=== PATIENT | female | born 1985 | race Caucasian/White ===

== ENCOUNTER 2016-07-04 15:00 | Inpatient (IN) | payer SELFPAY ==
[2016-07-04] MEDS ORDERED: Ertapenem Inj 1 GM in Sodium Chloride 0.9% 100 ML IV ONE (15:17)
[2016-07-04] MEDS ORDERED: NORMAL SALINE 10 ML SYRINGE FLUSH IVP PRN ×2 (15:17→18:17)
[2016-07-04] MEDS ORDERED: Sodium Chloride 0.9% 1,000 ML PRIMARY IV ONE (15:17)
--- NOTE | 2016-07-04 17:20 | DI ---
CT CTA CHEST NONCORONARY W/WO,07/04/2016 3:17 PM: Clinical History: Elevated d-dimer Previous Exam: None at this facility. Findings: Multiple helically acquired CT images are obtained through the chest following the intravenous demons tration of 75 cc of Isovue 300, and demonstrate normal pulmonary arteries without evidence of filling defect to suggest pulmonary embolism. There is no pleural effusion and no infiltrate. There are exte nsive inflammatory changes surrounding the gallbladder which are not well evaluated on this exam. The aorta and skeletal structures are unremarkable. Impression: 1. No evidence of pulmonary embolism. 2. Advanced inflammatory changes in the gallbladder fossa consistent with acute cholecystitis.
--- NOTE | 2016-07-04 18:05 | PDOC ---
History and Physical - History of Present Illness Date and Time of Service: 07/04/2016 6:31 PM Chief Complaint: Right upper quadrant abdominal pain of 5 days' duration History of Present Illness: This is a 30 years old female with no significant medical history except history of GERD for which she take Prilosec who came into the urgent care clinic because of right upper quadrant pain that started 5 days ago, pain is constant she said she did vomit once 5 days ago. The last 2 days her appetite is down and pain seemed to be increased with taking deep breath, there is no fever no shakes because of for continuous symptoms she came into the urgent care clinic. Evaluation there revealed elevated white count of 31,000, ultrasound showed acute cholecystitis was seen by Dr. Bond and she was referred to the ER because of an elevated d-dimer, in the ER she had CT of the chest which showed no evidence of PE and she was admitted. She did receive a dose of for ertapenem in the ER. Currently the patient rates her pain about 7 out of 10. The pain goes between the shoulders. She is not nauseated at this minute. Her bowels are normal. She is denying chest pain, she said she is taking shallow breaths because of her pain with increases with the taking deep breath. The pain she described as being throbbing pain. Past Medical History Medical History: GERD takes Prilosec Surgical History: No previous surgeries Family History: Reviewed an Not Pertinent Past Social History: Patient rarely drinks, she used to smoke quit 2 years ago, no drugs. Tobacco Use: Former Smoker Substance Use Type: None Alcohol Use: Rarely Medication / Allergies Home Medications: Home Medications Medication Instructions Recorded Confirmed Type Omeprazole Magnesium [Prilosec Otc] 1 tab PO DAILY tab 07/04/16 07/04/16 History Allergies/Adverse Reactions: Allergies Allergy/AdvReac Type Severity Reaction Status Date / Time No Known Allergies Allergy Verified 07/04/16 15:05 Review of Systems - Review of Systems All Systems: Reviewed & No Additional Complaints Except as Stated Exam - Vitals Vital Signs: Vital Signs Temperature 97.0 F Temperature Source Temporal Artery Scan Pulse Rate 87 Respiratory Rate 18 Blood Pressure 122/78 Pulse Ox 92 - General General Appearance: POSITIVE: No Acute Distress, Obese - Head Head Exam: POSITIVE: Normal Inspection, Atraumatic - Eye Eye Exam: POSITIVE: Normal Appearance - ENT ENT Exam: POSITIVE: Normal Exam Additonal ENT Exam Details: She has piercing in her nose and lips - Neck Neck Exam: POSITIVE: Normal Inspection - Respiratory Respiratory Exam: POSITIVE: Clear to Auscultation - Bilaterally - Cardiovascular Cardiovascular Exam: POSITIVE: RRR - GI/Abdominal Additional GI/Abdominal Exam Details: Difficult to assess for organomegaly because of obesity, the patient is tender in the right upper quadrant. Denny sign is positive. - Rectal Rectal Exam: POSITIVE: Deferred - External Exam: POSITIVE: Deferred Exam: POSITIVE: Deferred - Extremities Extremities Exam: POSITIVE: Normal Inspection - Back Back Exam: POSITIVE: Normal Inspection - Neurological Neurological Exam: POSITIVE: Alert, Oriented x 3, CN II-XII Intact, No Facial Droop, Speech Intact / Clear, Moves All Extremities Equally - Psychiatric Psychiatric Exam: POSITIVE: Normal Affect - Integumentary Integumentary Exam: POSITIVE: Normal Color Results - EKG Data -: EKG Interpreted by Me (EKG done in the clinic showed the sinus tachycardia at rate of 105) - Imaging Status: Report Reviewed by Me (CT of the chest showed no evidence of pulmonary embolism, advanced inflammatory changes in the gallbladder fossa consistent with acute cholecystitis Ultrasound of the abdomen showed stones, pericholecystic fluid and a positive sonographic Denny's sign consistent with acute cholecystitis) Assessment and Plan - Patient Problems (1) Acute cholecystitis Current Visit: Yes Status: Acute Comment: We'll continue with IV fluids and antibiotics she got a dosage of ertapenem already continue with ertapenem. Will write for pain medication and antiemetics. Will repeat her labs in the morning. I think she can proceed with surgery tomorrow. Will put her on nothing by mouth after midnight (2) Hypokalemia Current Visit: Yes Status: Acute Comment: Will replace her potassium repeat labs in the morning (3) Elevated d-dimer Current Visit: Yes Status: Acute Comment: CT of the chest was negative, I think is secondary to the inflammatory changes from acute cholecystitis. Photo / Body Diagrams - Uploaded Photos Uploaded Photos:
[2016-07-04] MEDS ORDERED: LIDOCAINE W/ SODIUM BICARB 0.5 ML SYR SUBD PRN (18:17)
[2016-07-04] MEDS ORDERED: ONDANSETRON 4 MG/2 ML VIAL IVP PRN (18:28)
[2016-07-04] MEDS: MORPHINE SULFATE 2 MG/1 ML IVP PRN (18:53)
--- NOTE | 2016-07-05 02:30 | PDOC ---
Abdomen/Flank HPI - General Chief Complaint: Abdomen Pain Stated Complaint: RUQ ABD PAIN X5 DAYS Date Seen by Provider: 07/04/16 Time Seen by Provider: 15:05 Source: POSITIVE: Patient, RN/MD Exam Limitations: POSITIVE: No limitations Nurse's Notes Reviewed & Considered: Yes - History of Present Illness Initial Comments: The patient is a 30-year-old female. She complains of a 5 day history of right upper abdominal pain. She was seen in the clinic by Dk Vidal, who evaluated her. Ultrasound of the abdomen showed gallbladder stones with para cholecystic fluid. Complete metabolic panel was normal with no elevation of liver enzymes. CRP was 36.6. White blood cell count was 31,700. D-dimer was obtained in the clinic which was elevated at 4.75. Electrocardiogram showed a sinus tachycardia. The patient's primary care physician discussed the disposition of the case with the surgeon legal secretary receptionist, Dr. Bond. Dr. Bond requested that we do a CTA of the chest to rule out pulmonary embolism, in view of the patient's elevated d-dimer. Patient is referred to the emergency room for this purpose and for further evaluation. Body Location Affected: REPORTS: Abdomen Timing: REPORTS: Constant Duration: >24 hours Severity: Moderate (5 days) Quality: REPORTS: "Pain" (Right upper quadrant of abdomen) Abdominal Pain Onset Location: REPORTS: RUQ Abdominal Pain Radiation: REPORTS: No radiation Context: REPORTS: None Modifying Factors: improves with: Other (Exacerbated by direct palpation) Associated Symptoms: REPORTS: Denies symptoms Similar Symptoms Previously: No Recent Care Received: REPORTS: Recently Seen, Treated by MD (As above) Any Prior Injuries Related to Current Complaint?: No - Patient Home Medications Home Medications: Home Medications Omeprazole Magnesium [Prilosec Otc] 1 tab PO DAILY tab 07/04/16 - Patient Allergies Allergies/Adverse Reactions: Allergies Allergy/AdvReac Type Severity Reaction Status Date / Time No Known Allergies Allergy Verified 07/04/16 15:05 Past Medical History - heen HEENT History: Denies History Cardiovascular History: Denies History Respiratory History: Asthma Additional Respiratory History: ASTHMA A CHILD, RESOLVED PER PT. Gastrointestinal History: Denies History Genitourinary History: Denies History Endocrine History: Denies History Musculoskeletal History: Denies History Prosthesis or Implant: No Neurological History: Denies History Blood Disorders: Denies History Psychiatric History: Denies History Female Reproductive History: Denies History LMP: CURRENTLY Obstetrical History: Denies History Cancer History: Denies History In Past Year Been Physically Harmed or Verbally Threatened: No History of MDRO: No Tobacco Use: Former Smoker Alcohol Use: Rarely Substance Use Type: None Previous Surgical History: Yes Type / Date of Surgery: DENTAL SURGERY ONLY Significant Family History: No pertinent family hx Past Medical History Reviewed: Reviewed - No Changes ROS - Limitations ROS Limitations: No Limitations Constitution: REPORTS: Denies Symptoms Cardiovascular: REPORTS: Denies Cardiac Symptoms Respiratory: REPORTS: Denies Resp Symptoms Neurological: REPORTS: Denies Neuro Symptoms Gastrointestinal: REPORTS: Abdominal Pain Endocrine: REPORTS: Denies Symptoms Musculoskeletal: REPORTS: Denies MS Symptoms Genitourinary: REPORTS: Denies Symptoms Eyes: REPORTS: Denies Symptoms ENT: REPORTS: Denies Symptoms Skin: REPORTS: Denies Skin Symptoms Lympathic: REPORTS: Denies Lympathic Symptoms Immunologic: POSITIVE: Denies Symptoms Psychiatric: POSITIVE: Denies Psych Symptoms Abdominal/Flank Pain PE - General Appearance General Appearance: POSITIVE: Alert, Cooperative, No Acute Distress, No Evidence of Trauma - HEENT HEENT: POSITIVE: Head Inspection Nml, Eyes Inspection Nml, Ears Inspection Nml, Nose Inspection Nml, Oral/Dental Inspect. Nml, Pharynx Inspect. Nml, PERRL, EOMI - Neck Neck: POSITIVE: Normal Inspection, No Apparent Injury - Respiratory Respiratory: POSITIVE: No Respiratory Distress, Breath Sounds Normal, Chest Non- Tender - Cardiovascular Cardiovascular: POSITIVE: Regular Rate and Rhythm, Heart Sounds Normal, Equal Pulses, Strong Pulses Peripheral Pulses: Radial (R): 2+, Radial (L): 2+ - Chest Chest: POSITIVE: Non Tender - Abdomen Abdomen: Soft: (All Quadrants), Denies Tenderness: (LLQ), (RLQ), No Splenomegaly : (All Quadrants), No Hepatomegaly: (All Quadrants), No Guarding: (All Quadrants ), No Rebound: (All Quadrants), No Palpable Pulse: (All Quadrants), No Palpabale Mass: (All Quadrants), No Distention: (All Quadrants), No Rigidity: ( All Quadrants), Tenderness Noted: (RUQ) Additional Abdominal Details: Abdominal examination shows bowel sounds be present, but probably somewhat depressed. Patient has pain on palpation over the epigastrium and right upper quadrant with a positive Denny's sign. No masses, organomegaly or rebound. - Back Back: POSITIVE: Normal Inspection. NEGATIVE: CVA Tenderness (R), CVA Tenderness (L) - Skin Skin: POSITIVE: Intact, Normal For Race, Warm, Dry, No Rash - Extremities Extremity: Non-Tender: (All Extremities), Normal ROM: (All Extremities), Normal Inspection: (All Extremities) - Neurological Neurological: POSITIVE: Oriented X3, assistant manager of operations Normal As Tested, Motor Normal, Sensation Normal, 5, 6 - Psychological Psychiatric: POSITIVE: Affect Appropriate, Mood Appropriate Images - Complete Complete: 1 - Pain on palpation Abdomen Progress - Results Reviewed by me Xrays/CTs/US Reviewed by me: Yes Discussed with Radiologist: Yes Radiology Findings: CTA chest shows no pulmonary emboli. There is inflammation in the gallbladder fossa compatible with cholecystitis. Lab Results Reviewed: Yes (see HPI. Blood cultures 2 drawn) - Patient's Progress Pain Medication Addressed: POSITIVE: Patient Refused School/Work Release Addressed: POSITIVE: Not Applicable Re-examine Time: 17:20 Re-Examine Comment: Invanz, 1 g started while in the emergency room. Patient transferred to Dr. Solorzano, hospitalist. Status: POSITIVE: Unchanged, Re-Examined - Consult Consult (If Yes, Name of Consulting MD & Time Called): Yes (Dr. Solorzano, hospitalist [id number], Dr. Bond, surgeon as above) Consulting MD will see pt:: POSITIVE: [facility] [place] Admit Counseled: POSITIVE: Patient, RE: Lab Results, RE: Radiology Results, RE: DX, RE : Need for F/U Patient Care Time - Estimated PCT Patient Care Time (In Minutes): 50 Vital Signs - VS Reviewed Vital Signs Reviewed: Yes Discharge Clinical Impression: Cholecystitis Discharge Disposition: Admit to Inpatient Condition: Stable Date Decision to Admit to Inpatient: 07/04/16 Time Decision to Admit to Inpatient: 17:10
[2016-07-05] MEDS: MORPHINE SULFATE 2 MG/1 ML IVP PRN ×3 (02:57→19:29)
[2016-07-05] MEDS ORDERED: ACETAMINOPHEN 650 MG SUPPOSITORY RECTAL ONE (04:29)
[2016-07-05] MEDS ORDERED: Sodium Chloride 0.9% 500 ML PRIMARY IV ONE (04:33)
[2016-07-05 05:01] LABS: BASOPHILS # (AUTO) 0.07 10*3/UL; BASOPHILS % (AUTO) 0.3 % (0-1); EOSINOPHILS # (AUTO) 0.01 10*3/UL; EOSINOPHILS % (AUTO) 0 % (0-8); HEMOGLOBIN 11.8 g/dL (12.0-16.0); LYMPHOCYTES # (AUTO) 2.05 10*3/uL; MEAN CORPUSCULAR HEMOGLOBIN 26.6 PG (27-31); MEAN CORPUSCULAR HGB CONC 32.8 g/dL (33-37); MEAN CORPUSCULAR VOLUME 81.3 FL (81-99); MEAN PLATELET VOLUME 10.1 FL (7.4-12.2); MONOCYTES % (AUTO) 10.5 % (5-15); NEUTROPHILS # (AUTO) 18.19 10*3/UL; NEUTROPHILS % (AUTO) 79.8 % (50-80); RED BLOOD COUNT 4.43 10^6/uL (4.20-5.40)
[2016-07-05 05:15] LABS: PLATELET MORPHOLOGY COMMENT NORMAL MORPHOLOGY (NORM); RBC MORPHOLOGY COMMENT NORMAL MORPHOLOGY (NORM); WBC MORPHOLOGY COMMENT NORMAL MORPHOLOGY (NORM)
[2016-07-05 05:25] LABS: BLOOD UREA NITROGEN 12 mg/dL (7-22); BUN/CREATININE RATIO 13.33 (6-20); CALCIUM 8.2 mg/dL (8.7-10.7); EST GLOMERULAR FILTRATION > 60 (>60 ml/min/1.73m(2)); LIPASE 27 IU/L (23-300); SERUM ALBUMIN 3.2 g/dL (3.5-4.8)
[2016-07-05] MEDS ORDERED: Lactated Ringers 1,000 ML PRIMARY IV ONE ×3 (08:24→11:07)
[2016-07-05] MEDS ORDERED: LIDOCAINE MPF 2% - 5 ML (20 MG/1 ML) ONE (08:43)
[2016-07-05] MEDS ORDERED: ROCURONIUM 10 MG/1 ML - 5 ML VIAL IVP ONE ×2 (08:44→09:52)
[2016-07-05] MEDS ORDERED: MIDAZOLAM 5 MG/1 ML ONE (08:44)
[2016-07-05] MEDS ORDERED: fentaNYL Inj 250 MCG/5 ML VIAL ONE (08:44)
[2016-07-05] MEDS ORDERED: ERTAPENEM 1 GM VIAL ONE (08:56)
[2016-07-05] MEDS ORDERED: Sodium Chloride 0.9% 100 ML IV ONE (08:57)
[2016-07-05] MEDS ORDERED: SCOPOLAMINE HYDROBROMIDE 1.5 MG - 1 EACH PATCH TRANSDERM ONE (08:59)
[2016-07-05] MEDS ORDERED: ONDANSETRON 4 MG/2 ML VIAL ONE (08:59)
[2016-07-05] MEDS ORDERED: DEXAMETHASONE PF 10 MG/1 ML VIAL ONE (08:59)
[2016-07-05] MEDS ORDERED: Ertapenem Inj 1 GM in Sodium Chloride 0.9% 100 ML IV SCH (09:00)
--- NOTE | 2016-07-05 09:19 | PDOC(PROG) ---
Date and Time of Service: 07/05/2016 9 AM Interval History: A little more comfortable. She did tolerate some fluids. Had a temperature 102.3 last night. She is afebrile this morning after some Tylenol. Still having right upper quadrant pain. Did give some pain medicines and some antibiotics. She is ready to proceed with cholecystectomy. Patient has been cleared by a hospitalist to proceed. Her CTA of her chest was negative for pulmonary embolism. Her white count is down to 22,000. Liver function tests remain normal. Objective : Data - Labs CBC and BMP: 07/05/16 04:30 07/05/16 04:30 Labs - Last 24 Hours: Laboratory Results 07/05/16 Range/Units 04:30 WBC 22.80 H (4.8-10.8) 10^3/uL RBC 4.43 (4.20-5.40) 10^6/uL Hgb 11.8 L (12.0-16.0) g/dL Hct 36.0 L (37.0-47.0) % MCV 81.3 (81-99) FL MCH 26.6 L (27-31) PG MCHC 32.8 L (33-37) g/dL RDW Std Deviation 48.1 (39-50) fL RDW Coeff of Alivia 16.2 H (11.5-14.5) % Plt Count 311 (140-350) 10*3/uL MPV 10.1 (7.4-12.2) FL Immature Gran % (Auto) 0.4 (0-5) % Neut % (Auto) 79.8 (50-80) % Lymph % (Auto) 9.0 L (10-50) % [place] % (Auto) 10.5 (5-15) % Eos % (Auto) 0 (0-8) % Baso % (Auto) 0.3 (0-1) % Immature Gran # (Auto) 0.08 10*3/UL Neut # (Auto) 18.19 10*3/UL Lymph # (Auto) 2.05 10*3/uL [place] # (Auto) 2.40 H (0.3-0.8) 10*3/UL Eos # (Auto) 0.01 10*3/UL Baso # (Auto) 0.07 10*3/UL WBC Morphology Comment Normal morphology (NORM) Plt Morphology Comment Normal morphology (NORM) RBC Morph Comment Normal morphology (NORM) Sodium 137 (135-145) meq/L Potassium 3.8 (3.8-5.2) meq/L Chloride 104 (98-112) meq/L Carbon Dioxide 22 L (23-33) meq/L Anion Gap 11 (5-20) BUN 12 (7-22) mg/dL Creatinine 0.9 (0.50-1.20) mg/dL Estimated GFR > 60 (>60 ml/min/1.73m(2)) BUN/Creatinine Ratio 13.33 (6-20) Glucose 106 (78-110) mg/dL Calculated Osmolality 283.0 (267-292) mOsm/kg Calcium 8.2 L (8.7-10.7) mg/dL Total Bilirubin 0.7 (0.3-1.2) mg/dL AST 28 (8-39) IU/L ALT 32 (9-52) IU/L Alkaline Phosphatase 83 (38-126) IU/L Total Protein 6.9 (6.1-8.0) g/dL Albumin 3.2 L (3.5-4.8) g/dL Globulin 3.7 (2.50-4.10) g/dL Albumin/Globulin Ratio 0.80 L (1.3-2.0) mg/g Amylase < 30 L (30-110) U/L Lipase 27 (23-300) IU/L Blood Type O POSITIVE Antibody Screen Negative - Vital Signs Vital Signs and I&O: Vital Signs - Last Taken Temperature 97.8 F 07/05/16 07:50 Pulse Rate 90 07/05/16 07:50 Respiratory Rate 16 07/05/16 07:50 Blood Pressure 108/78 07/05/16 07:50 Pulse Ox 96 07/05/16 07:50 Intake and Output (24hr x 4 totals) 07/03/16 07/04/16 07/05/16 07/06/16 05:59 05:59 05:59 05:59 Intake Total 1000 1882 Output Total 600 Balance 400 1882 Objective : Exam - General General Appearance: Cooperative, Mild Distress - Respiratory Respiratory Exam: Clear to Auscultation - Bilaterally, Breathing Non Labored - Cardiovascular Cardiovascular Exam: RRR, No Murmur - GI/Abdominal GI/Abdominal Exam: Soft (Every where but the right upper quadrant.), Guarding ( Right upper quadrant), Diminished Bowel Sounds, Positive for RUQ Pain - Neurological Neurological Exam: Alert, Oriented x 3 - Psychiatric Psychiatric Exam: Normal Affect, Normal Mood Assessment and Plan - Patient Problems (1) Cholelithiasis and acute cholecystitis without obstruction Current Visit: Yes Status: Acute Priority: High Diagnosis Date: 07/04/16 Comment: Proceed with laparoscopic cholecystectomy with intraoperative cholangiogram. Again the possibility of open cholecystectomy has been discussed.The procedure has been discussed with the patient in complete yet simple terms including benefits, risks, and alternatives. All questions have been answered. Informed consent has been obtained.
[2016-07-05] MEDS ORDERED: KETAMINE 100 MG/1 ML - 5 ML ONE (09:27)
[2016-07-05] MEDS ORDERED: SUFENTANIL 50 MCG/1 ML ONE (09:27)
[2016-07-05] MEDS ORDERED: SUGAMMADEX SODIUM 200 MG/2 ML VIAL IV ONE (10:02)
[2016-07-05] MEDS ORDERED: HYDROmorphone 2 MG/1 ML IVP PRN (10:21)
[2016-07-05] MEDS ORDERED: NORMAL SALINE 10 ML SYRINGE FLUSH IVP PRN (10:21)
[2016-07-05] MEDS ORDERED: fentaNYL Inj 100 MCG/2 ML VIAL IVP PRN (10:21)
[2016-07-05] MEDS ORDERED: Prochlorperazine Edisylate Inj 10mg/2ml vial IVP PRN (10:21)
[2016-07-05] MEDS ORDERED: Lactated Ringers 1,000 ML PRIMARY IV SCH ×2 (10:30→12:00)
[2016-07-05] MEDS ORDERED: KETOROLAC 30 MG/1 ML VIAL ONE (10:30)
--- NOTE | 2016-07-05 11:33 | GEN.OPNOTE ---
Operative Note Surgery Date: 07/05/16 Preoperative Diagnosis: Acute cholecystitis with cholelithiasis. Postoperative Diagnosis: Acute cholecystitis with cholelithiasis. Procedure: Laparoscopic cholecystectomy with intraoperative cholangiogram. Surgeon: Tello Bond MD Hand Sewer Shoes: Alonzo Raphael MD Anesthesia Provider: Jose Thorne CRNA Anesthesia Type: General Estimated Blood Loss (mL): 50 Fluids: 2 L of IV crystalloid. 1 g of IV Invanz at the start of the procedure. Pathology: Specimen to pathology. Indications: patient with focal right upper quadrant pain with guarding. Ultrasound consistent with acute cholecystitis. She was hydrated and given antibiotics overnight and taken to the operating room for cholecystectomy. Findings: Acute cholecystitis and cholelithiasis. Intraoperative cholangiogram showed a normal sized duct with a normal distal taper. There was free flow of contrast into the duodenum. There were no filling defects. There was a normal branching pattern. Other than an acutely inflamed gallbladder there were no other intra-abdominal findings of significance. Complications: none. Operative Summary: The patient was taken to the operating room and placed on the operating table in the supine position. Following induction of general anesthetic the abdomen was prepped and draped in a sterile fashion. A surgical timeout was done. The infraumbilical region was infiltrated with 1/4% Marcaine with epinephrine. An incision was made. The abdominal wall was elevated. A Veres needle was placed without apparent injury and a pneumoperitoneum was induced. The veres needle was withdrawn. A 10 mm trocar was placed under direct visualization without apparent injury and a laparoscope was inserted. Under direct visualization and following Marcaine injection a 10 mm trocar was placed in the epigastrium and 2x5 mm trochars were placed along the costal margin. The gallbladder was completely wrapped in omentum. The omentum was peeled off the gallbladder. The gallbladder was acutely inflamed and the wall was very thick. The gallbladder was decompressed with a needle. The gallbladder was grasped and elevated. Blunt dissection was used to free the cystic duct. A clip was placed along the neck of the gallbladder. A hole was made in the side wall of the cystic duct. A Karyn cholangiocatheter was inserted. Intraoperative cholangiogram was taken and was normal as previously dictated. The [place] catheter was withdrawn. 2 clips were placed on the distal cystic duct and the duct was divided. The cystic artery was isolated. 2 clips were placed proximally and one distally and the artery was divided. The gallbladder was taken from the hepatic bed using electrocautery. Hemostasis was assured. Appropriate irrigation and suctioning were performed. Final check for hemostasis was made. 5 mL of Marcaine was placed in the gallbladder fossa and 5 over the dome of the liver. The gallbladder was placed in an Endopouch. The laparoscope was moved to the epigastric port. The gallbladder was grasped with a large grasper and brought up to the umbilical trocar site. The fascial defect at the umbilicus was slightly increased in size. The gallbladder was brought out through the trocar site without difficulty. The fascial defect at the umbilicus was closed with a running 0 Vicryl. A final check for hemostasis was made. The CO2 was burped from the abdominal cavity. The trochars were removed under direct visualization. No other trocar sites required fascial closure. The skin wounds were closed with inverted interrupted or running subcuticular 4-0 Monocryl followed by Mastisol Steri- Strips and an appropriate dressing. Patient tolerated the procedure well without complication. Patient was taken to the recovery room in stable condition. All counts were correct. Patient Problems - Patient Problem List (1) Cholelithiasis and acute cholecystitis without obstruction Current Visit: Yes Status: Acute Diagnosis Date: 07/04/16 Priority: High
[2016-07-05] MEDS ORDERED: ONDANSETRON 4 MG/2 ML VIAL IVP PRN (12:00)
--- NOTE | 2016-07-05 13:29 | PDOC(PROG) ---
Interval History: Patient is status post laparoscopic cholecystectomy doing well postop came up to the floor. Objective : Data - Labs CBC and BMP: 07/05/16 04:30 07/05/16 04:30 Labs - Last 24 Hours: Laboratory Results 07/05/16 Range/Units 04:30 WBC 22.80 H (4.8-10.8) 10^3/uL RBC 4.43 (4.20-5.40) 10^6/uL Hgb 11.8 L (12.0-16.0) g/dL Hct 36.0 L (37.0-47.0) % MCV 81.3 (81-99) FL MCH 26.6 L (27-31) PG MCHC 32.8 L (33-37) g/dL RDW Std Deviation 48.1 (39-50) fL RDW Coeff of Alivia 16.2 H (11.5-14.5) % Plt Count 311 (140-350) 10*3/uL MPV 10.1 (7.4-12.2) FL Immature Gran % (Auto) 0.4 (0-5) % Neut % (Auto) 79.8 (50-80) % Lymph % (Auto) 9.0 L (10-50) % [place] % (Auto) 10.5 (5-15) % Eos % (Auto) 0 (0-8) % Baso % (Auto) 0.3 (0-1) % Immature Gran # (Auto) 0.08 10*3/UL Neut # (Auto) 18.19 10*3/UL Lymph # (Auto) 2.05 10*3/uL [place] # (Auto) 2.40 H (0.3-0.8) 10*3/UL Eos # (Auto) 0.01 10*3/UL Baso # (Auto) 0.07 10*3/UL WBC Morphology Comment Normal morphology (NORM) Plt Morphology Comment Normal morphology (NORM) RBC Morph Comment Normal morphology (NORM) Sodium 137 (135-145) meq/L Potassium 3.8 (3.8-5.2) meq/L Chloride 104 (98-112) meq/L Carbon Dioxide 22 L (23-33) meq/L Anion Gap 11 (5-20) BUN 12 (7-22) mg/dL Creatinine 0.9 (0.50-1.20) mg/dL Estimated GFR > 60 (>60 ml/min/1.73m(2)) BUN/Creatinine Ratio 13.33 (6-20) Glucose 106 (78-110) mg/dL Calculated Osmolality 283.0 (267-292) mOsm/kg Calcium 8.2 L (8.7-10.7) mg/dL Total Bilirubin 0.7 (0.3-1.2) mg/dL AST 28 (8-39) IU/L ALT 32 (9-52) IU/L Alkaline Phosphatase 83 (38-126) IU/L Total Protein 6.9 (6.1-8.0) g/dL Albumin 3.2 L (3.5-4.8) g/dL Globulin 3.7 (2.50-4.10) g/dL Albumin/Globulin Ratio 0.80 L (1.3-2.0) mg/g Amylase < 30 L (30-110) U/L Lipase 27 (23-300) IU/L Blood Type O POSITIVE Antibody Screen Negative Objective : Exam - General General Appearance: Cooperative - Respiratory Respiratory Exam: Clear to Auscultation - Bilaterally, Breathing Non Labored, Normal To Percussion, Normal to Percussion and Palpation - Cardiovascular Cardiovascular Exam: RRR, No Murmur, No Clicks, No Gallops - GI/Abdominal GI/Abdominal Exam: Non Tender, Non Distended, Soft - Extremities Extremities Exam: No Clubbing Present, No Edema Present, No Cyanosis Present Assessment and Plan - Patient Problems (1) Acute cholecystitis Current Visit: Yes Status: Acute Comment: Status post cholecystectomy doing well still elevated white count continue antibiotics we'll continue to hydrate and observe her today and advance diet as tolerated (2) Elevated WBC count Current Visit: Yes Status: Acute Comment: Continue IV antibiotics Peter was discussed with Dr. Bond Photo / Body Diagrams - Uploaded Photos Uploaded Photos:
[2016-07-05] MEDS: HYDROcodone-APAP 5 MG -325 MG TABLET PO PRN ×3 (15:06→23:52)
[2016-07-05] MEDS: KETOROLAC 30 MG/1 ML VIAL IVP SCH ×2 (18:08→23:51)
[2016-07-05] MEDS: NORMAL SALINE 10 ML SYRINGE FLUSH IVP PRN ×2 (19:30→23:52)
[2016-07-05] MEDS: DOCUSATE 100 MG CAPSULE PO SCH (21:06)
[2016-07-06] MEDS: HYDROcodone-APAP 5 MG -325 MG TABLET PO PRN (04:32)
[2016-07-06] MEDS: KETOROLAC 30 MG/1 ML VIAL IVP SCH (05:31)
[2016-07-06] MEDS: NORMAL SALINE 10 ML SYRINGE FLUSH IVP PRN (05:31)
[2016-07-06 05:34] LABS: BASOPHILS # (AUTO) 0.02 10*3/UL; BASOPHILS % (AUTO) 0.1 % (0-1); EOSINOPHILS # (AUTO) 0 10*3/UL; EOSINOPHILS % (AUTO) 0 % (0-8); HEMATOCRIT 33.7 % (37.0-47.0); HEMOGLOBIN 10.9 g/dL (12.0-16.0); MEAN CORPUSCULAR HEMOGLOBIN 26.9 PG (27-31); MEAN CORPUSCULAR HGB CONC 32.3 g/dL (33-37); MEAN CORPUSCULAR VOLUME 83.2 FL (81-99); MEAN PLATELET VOLUME 10.5 FL (7.4-12.2); MONOCYTES # (AUTO) 1.21 10*3/UL (0.3-0.8); MONOCYTES % (AUTO) 6.9 % (5-15); NEUTROPHILS # (AUTO) 15.13 10*3/UL; NEUTROPHILS % (AUTO) 85.9 % (50-80); PLATELET MORPHOLOGY COMMENT NORMAL MORPHOLOGY (NORM); RBC MORPHOLOGY COMMENT NORMAL MORPHOLOGY (NORM); RED BLOOD COUNT 4.05 10^6/uL (4.20-5.40); WBC MORPHOLOGY COMMENT NORMAL MORPHOLOGY (NORM)
[2016-07-06 05:43] LABS: BLOOD UREA NITROGEN 14 mg/dL (7-22); BUN/CREATININE RATIO 23.33 (6-20); CALCIUM 8.4 mg/dL (8.7-10.7); EST GLOMERULAR FILTRATION > 60 (>60 ml/min/1.73m(2)); SERUM ALBUMIN 3.2 g/dL (3.5-4.8)
[2016-07-06 06:47] VITALS: RESP 17; TEMP 97.6
[2016-07-06] MEDS ORDERED: PANTOPRAZOLE 40 MG TABLET PO SCH (07:00)
[2016-07-06] MEDS ORDERED: Ertapenem Inj 1 GM in Sodium Chloride 0.9% 100 ML IV SCH (09:00)
[2016-07-06] MEDS: DOCUSATE 100 MG CAPSULE PO SCH (09:04)
--- NOTE | 2016-07-06 11:00 | DCSUMMARY ---
Discharge Summary Admit Date: 07/04/16 Discharge Date: 07/06/16 Admitting Diagnosis: acute cholecystitis and cholelithiasis. Elevated white blood count. Discharge Diagnosis: Acute cholecystitis with cholelithiasis. Elevated white blood count. Primary Surgery and Date: Laparoscopic cholecystectomy with intraoperative cholangiogram. 07/05/2016 Hospital Course: Patient was admitted from the medical office building with severe right upper quadrant abdominal pain. Ultrasound showed a thick-walled gallbladder with stones. Her liver function tests were normal. Her urinalysis was normal. Her white count was markedly elevated at 32,000. She was likely dehydrated. She had a positive d-dimer. She was referred to the emergency room. A CTA of her chest showed no pulmonary embolus. She was admitted to the hospitalist service. She was hydrated and given appropriate antibiotics. I had seen her in consultation up at the medical office building. Yesterday she was taken for laparoscopic cholecystectomy with intraoperative cholangiogram. She had a very inflamed and thick walled gallbladder with multiple stones. Her intraoperative cholangiogram was normal. She has done well postop. She is tolerating a regular diet. She is fully ambulatory. She is voiding. She has passed gas but not had a bowel movement. Her white count has decreased to 17,000. Her hemoglobin and hematocrit are approximately 11 and 31. Her liver function tests are normal. She is ready to be discharged home for outpatient follow-up. Exam - Vitals Vital Signs: Vital Signs Temperature 97.6 F Temperature Source Temporal Artery Scan Pulse Rate [Pulse Oximeter 61 Right] Pulse Rate 101 Respiratory Rate 17 Blood Pressure [Left Arm] 97/59 Blood Pressure 122/77 Pulse Ox 96 Oxygen Flow Rate 2 Oxygen Flow Rate 5 Oxygen Delivery Method Room Air Height 5 ft 7 in Weight 133.265 kg - General General Appearance: POSITIVE: No Acute Distress, Cooperative - Respiratory Respiratory Exam: POSITIVE: Clear to Auscultation - Bilaterally, Breathing Non Labored - Cardiovascular Cardiovascular Exam: POSITIVE: RRR, No Murmur - GI/Abdominal GI/Abdominal Exam: POSITIVE: Non Distended, Soft, Diminished Bowel Sounds Additional GI/Abdominal Exam Details: Dressings are clean and dry and intact. Incisional tenderness only. Otherwise benign abdominal exam. - Neurological Neurological Exam: POSITIVE: Alert, Oriented x 3 - Psychiatric Psychiatric Exam: POSITIVE: Normal Affect, Normal Mood Data Perinent Studies: Ultrasound showed a thick-walled gallbladder with multiple stones. CTA of her chest was negative for pulmonary embolism. Intraoperative cholangiogram showed no filling defects and was normal. Procedures: Laparoscopic cholecystectomy 07/05/2016. Patient Problems - Patient Problem List (1) Cholelithiasis and acute cholecystitis without obstruction Current Visit: Yes Status: Acute Diagnosis Date: 07/04/16 Priority: High Comment: Doing very well postop. Ready to be discharged home for outpatient follow-up. (2) Elevated WBC count Current Visit: Yes Status: Acute Diagnosis Date: 07/04/16 Priority: Medium Comment: White count is coming down very nicely. Lots of inflammation in her right upper quadrant. Probably still slightly dehydrated. We'll send her home on 3 additional days of oral antibiotics. She got 3 days worth of Invanz.
--- NOTE | 2016-07-06 21:06 | DI ---
OPERATIVE CHOLANGIOGRAM, 07/05/2016 8:28 AM : Clinical History: Cholecystitis and cholelithiasis. 6 are submitted. Contrast is present on all films with reflux into the duodenum. There is no retained stone in the common hepatic or common bile ducts. The visualized portions of the intrahepatic biliar y tree are normal. Reading: Normal operative cholangiogram.
== END 2016-07-06 12:07 | disposition home or self-care (01) | DRG 419 ==
LOC: ER 15:00 → MED/SURG 17:32 → OPS 07-05 08:51 → MED/SURG 07-05 12:05
PROVIDERS: ADMIT Internal Medicine; ATTEND Surgery
PROC: BF12YZZ Fluoroscopy of Gallbladder using Other Contrast (ICD-10-PCS; 2016-07-05)
PROC: 0FT44ZZ Resection of Gallbladder, Percutaneous Endoscopic Approach (ICD-10-PCS; principal; 2016-07-05 08:27)
DX: K80.12 Calculus of gallbladder with acute and chronic cholecystitis without obstruction (principal); D72.829 Elevated white blood cell count, unspecified
CPT/HCPCS: 36415; 71275; 74300; 80053; 82150; 83690; 84703; 85025; 86850; 86900; 86901; 87040; 87641; 94150; 94761; 96361; 96365; 99284; J1100; J1335; J1885; J2001; J2250; J2270; J2405; J3010; J3490; J7030; J7040; J7050; J7120

== ENCOUNTER → 2016-07-04 | Outpatient (CLI) | payer SELFPAY ==
[2016-07-04 12:49] LABS: BLOOD UREA NITROGEN 7 mg/dL (7-22); CALCIUM 9.2 mg/dL (8.7-10.7); EST GLOMERULAR FILTRATION > 60 (>60 ml/min/1.73m(2)); LIPASE 25 IU/L (23-300); SERUM ALBUMIN 3.9 g/dL (3.5-4.8)
--- NOTE | 2016-07-04 12:55 | EKG ---
[address] [address] Measurements Intervals [place] Rate: 105 P: 50 NH: 126 QRS: 63 QRSD: 106 T: 6 QT: 311 QTc: 372 Interpretive Statements SINUS TACHYCARDIA ABNORMAL RHYTHM ECG No previous ECG available for comparison Electronically Signed On 07-05-16 15:08:49 MDT by Antoine Oviedo [email or web address]
[2016-07-04 13:15] LABS: FREE T4 (FREE THYROXINE) 1.46 ng/dL (0.93-1.71)
[2016-07-04 13:16] LABS: HEMATOCRIT 40.6 % (37.0-47.0); HEMOGLOBIN 13.5 g/dL (12.0-16.0); MEAN CORPUSCULAR HEMOGLOBIN 26.6 PG (27-31); MEAN CORPUSCULAR HGB CONC 33.3 g/dL (33-37); MEAN CORPUSCULAR VOLUME 80.1 FL (81-99); RED BLOOD COUNT 5.07 10^6/uL (4.20-5.40)
[2016-07-04 13:17] LABS: BAND NEUTROPHILS % 1 % (0-10); BASOPHILS % (MANUAL) 0 % (0-1); EOSINOPHILS % (MANUAL) 0 % (0-8); LYMPHOCYTES % (MANUAL) 10 % (10-50); MEAN PLATELET VOLUME 10.3 FL (7.4-12.2); MONOCYTES % (MANUAL) 6 % (0-12); NEUTROPHILS % (MANUAL) 83 % (50-80); PLATELET MORPHOLOGY COMMENT NORMAL MORPHOLOGY (NORM); RBC MORPHOLOGY COMMENT NORMAL MORPHOLOGY (NORM); WBC MORPHOLOGY COMMENT NORMAL MORPHOLOGY (NORM)
[2016-07-04 13:19] LABS: C-REACTIVE PROTEIN 36.6 mg/dL (0.0-0.9)
--- NOTE | 2016-07-04 14:05 | DI ---
XR ABDOMEN KUB UPRIGHT,07/04/2016 11:33 AM: Clinical History: Elevated white blood cell count and abdominal pain. Previous Exam: None at this facility. Findings: Routine acute abdominal series is performed, and demonstrates a nonobstructive bowel gas pattern. The re is no subdiaphragmatic free air. Skeletal structures are unremarkable. There are no pathologic fredi cifications. Impression: No acute disease.
--- NOTE | 2016-07-04 14:05 | DI ---
US ABDOMEN LIMITED,07/04/2016 12:33 PM: Clinical History: Abdominal pain Previous Exam: None at this facility. Findings: Multiple grayscale and color Doppler sonographic images are obtained through the abdomen, and demonst rate limited evaluation due to patient's recent postprandial state. The gallbladder contains some pericholecystic fluid, some layering stones and there is a positive Mur phy's sign. The common bile duct measured 6 mm. Right kidney measured 11.1 cm in length without hydronephrosis nor nephrolithiasis. Renal cortex is normal. Impression: 1. Stones, pericholecystic fluid and a positive sonographic Denny's sign is most consistent with acu te cholecystitis.
== END ==
LOC: MOB RAD 11:37
PROVIDERS: ATTEND Physician Assistant
DX: R10.84 Generalized abdominal pain (principal); R00.0 Tachycardia, unspecified; R06.02 Shortness of breath; K80.00 Calculus of gallbladder with acute cholecystitis without obstruction
CPT/HCPCS: 36415; 74020; 76705; 80053; 83690; 84439; 84443; 85007; 85379; 86140; 87088; 93005; 93010